=== PATIENT | female | born 1955 | race Caucasian/White ===

== ENCOUNTER → 2021-04-12 | Outpatient (CLI) | payer OTHER | LOC: KOH-I 11:08 | DX: M53.3 Sacrococcygeal disorders, not elsewhere classified (principal); G89.29 Other chronic pain | CPT/HCPCS: 72195 ==

== ENCOUNTER → 2021-08-08 | Outpatient (CLI) | payer OTHER ==
[~2021-08-08] MED LIST: BENICAR20 MG PO; BUSPIRONE HCL5 MG PO; HYDROCODON-ACE1 EAC4 PO; IBU800 MG PO; LEVOTHYROXINE88 MC1 PO; LIDOCAINE PATCH 5% TOP; OMEPRAZOLE40 MG PO; RESTORIL15 MG PO
[2021-08-08 10:52] LABS: HEMOGLOBIN 13.6 gm/dl (12.3-15.3); RED BLOOD COUNT 4.32 M/UL (4.00-5.10); WHITE BLOOD COUNT 5.3 K/UL (4.5-11.0)
[2021-08-08 10:57] LABS: BUN/CREATININE RATIO 14 (0-10)
== END ==
LOC: OPSV2 09:00
PROVIDERS: Podiatrist Foot & Ankle Surgery
DX: Z01.818 Encounter for other preprocedural examination (principal)
CPT/HCPCS: 36415; 80048; 85027; 93926

== ENCOUNTER → 2021-09-06 | Day surgery (SDC) | payer OTHER | END | disposition home or self-care (01) | LOC: OR 05:30 | DX: G57.82 Other specified mononeuropathies of left lower limb (principal); G89.29 Other chronic pain; I10 Essential (primary) hypertension; E03.9 Hypothyroidism, unspecified; F17.210 Nicotine dependence, cigarettes, uncomplicated; Z88.8 Allergy status to other drugs, medicaments and biological substances; Z79.899 Other long term (current) drug therapy; Z20.822 Contact with and (suspected) exposure to COVID-19 | CPT/HCPCS: 73630; J0690; J1100; J1885; J2250; J2370; J2405; J2704; J2795; J3010; J3370; J7120; Q4133 ==

== ENCOUNTER → 2022-01-10 | Outpatient (CLI) | payer OTHER | LOC: EMI 13:27 | DX: M54.2 Cervicalgia (principal); M51.26 Other intervertebral disc displacement, lumbar region; M48.061 Spinal stenosis, lumbar region without neurogenic claudication; M47.812 Spondylosis without myelopathy or radiculopathy, cervical region; M48.02 Spinal stenosis, cervical region | CPT/HCPCS: 72141; 72148 ==